=== PATIENT | female | born 1980 ===

== ENCOUNTER 2021-06-16 01:20 | Emergency (ER) | payer OTHER, BC, SELFPAY ==
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
[2021-06-16 01:35] VITALS: BP 140/80; PULSE 76; O2SAT 99
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
[2021-06-16 01:52] VITALS: BP 167/105; PULSE 105; RESP 18; TEMP 37; O2SAT 97; BMI 38.2
[2021-06-16 01:58] VITALS: PULSE 105
[2021-06-16] MEDS: Acetaminophen 325 MG TABLET 650 MG PO (01:59)
[2021-06-16 02:00] VITALS: BP 167/105; PULSE 105; RESP 18; O2SAT 97
== END 2021-06-16 03:11 | disposition home or self-care (01) ==
PROVIDERS: Emergency Provider Emergency Medicine
DX: S60.221A Contusion of right hand, initial encounter (principal); V47.5XXA Car driver injured in collision with fixed or stationary object in traffic accident, initial encounter; Y93.89 Activity, other specified; Y92.414 Local residential or business street as the place of occurrence of the external cause; Y99.9 Unspecified external cause status
CPT/HCPCS: 73130; 99283; 99284